=== PATIENT | male | born 1945 | race Caucasian/White ===

== ENCOUNTER 2016-11-29 11:02 | Emergency (ER) | payer OTHER ==
[2016-11-29 11:18] VITALS: RESP 20; TEMP 97.9; O2SAT 92
--- NOTE | 2016-11-29 12:13 | EDPHY ---
H & P Time Seen by Provider: 11/29/16 11:13 HPI/ROS: 71-year-old male presents complaining of fall out of his bed on his right elbow approximately 3 weeks ago and then recently has noticed increasing redness and presents today concerned there may be a possible infection. No fevers or chills no difficulty moving his elbow. Review of systems As per HPI General no fever no chills no weakness HEENT no eye pain no eye discharge. No eye redness, no sore throat Respiratory no cough, no shortness of breath Cardiac no chest pain, no peripheral edema GI no abdominal pain, no diarrhea, no constipation, no nausea, no vomiting no flank pain, no hematuria, no dysuria Musculoskeletal no myalgias, no joint pain Heme no easy bruising, no easy bleeding Endo no polyuria, no polydipsia Skin positive rashes, no pruritus Neuro no syncope, no dizziness, no headaches Psych is no suicidal ideation, no homicidal ideation Past Medical/Surgical History: GERD, hypothyroidism Social History: Alcohol socially, denies drug use Smoking Status: Former smoker Physical Exam: 71-year-old male alert and oriented no acute distress nontoxic appearance afebrile Atraumatic normocephalic Neck no JVD Lungs clear to auscultation, no respiratory distress Heart regular rate and rhythm Extremities no cyanosis clubbing edema Except Right upper extremity Right elbow Full range of motion of right elbow wrist and digits Good distal pulses Posterior right elbow erythematous over olecranon with 1 small area of fluctuance with overlying crusted debris Constitutional: Initial Vital Signs Temperature (C) 36.6 C 11/29/16 11:15 Heart Rate 81 11/29/16 11:15 Respiratory Rate 20 11/29/16 11:15 Blood Pressure 137/84 H 11/29/16 11:15 O2 Sat (%) 92 11/29/16 11:15 O2 Delivery Mode Room Air Allergies/Adverse Reactions: Penicillins Allergy (Verified 11/29/16 11:26) thimerosal Allergy (Verified 11/29/16 11:26) Home Medications: Medication Instructions Recorded Antispasmodic Elixir 11/29/16 B Complex 11/29/16 Clindamycin HCl [Clindamycin] 300 mg PO TID #30 cap 11/29/16 FOLIC ACID 11/29/16 Levothyroxine 10/04/17 Prilosec Otc 11/29/16 Sertraline HCl 11/29/16 Valsartan 11/29/16 Medical Decision Making - Diagnostics Imaging Results: Imaging Impressions Elbow X-Ray 11/29/16 12:09 Impression: 1. Posterior soft tissue swelling consistent with olecranon bursitis. 2. No evidence of osteomyelitis, fracture or effusion. ED Course/Re-evaluation: Patient seen and evaluated for right elbow redness. Small area of fluctuance noted at olecranon, needled with small amount of serosanguineous drainage sent for culture. X-ray negative for fracture negative for foreign body Consistent with soft tissue swelling and olecranon bursa Impression Olecranon bursitis Wound infection overlying olecranon Plan Rest, compression Clindamycin three times daily 300 mg times 10 days Anti-inflammatory as needed Differential Diagnosis: Olecranon bursitis, wound infection with olecranon bursitis, cellulitis of posterior elbow Departure - Departure Disposition: Home, Routine, Self-Care Clinical Impression: Olecranon bursitis of right elbow, Cellulitis Condition: Good Instructions: Cellulitis (ED), Elbow Bursitis (ED) Referrals: ALYSSA POLLACK [Other] - As per Instructions Prescriptions: Clindamycin HCl [Clindamycin] 300 mg PO TID #30 cap
[2016-11-29 13:03] VITALS: BP 135/82; PULSE 84
== END 2016-11-29 13:00 | disposition home or self-care (01) ==
LOC: CED 11:02
DX: M70.21 Olecranon bursitis, right elbow (principal); L03.113 Cellulitis of right upper limb; Z87.891 Personal history of nicotine dependence
CPT/HCPCS: 73080-PO